=== PATIENT | male | born 2000 | race Two or more races ===

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

== ENCOUNTER 2021-12-11 15:53 | Emergency (ER) | payer MEDICAID, OTHER ==
[~2021-12-11] VITALS: Ht 180.3 cm; Wt 81.6 kg
[2021-12-11 20:47] VITALS: BP 128/64
== END 2021-12-11 19:53 | disposition home or self-care (01) ==
LOC: ER 15:55
DX: S96.912A Strain of unspecified muscle and tendon at ankle and foot level, left foot, initial encounter (principal); S16.1XXA Strain of muscle, fascia and tendon at neck level, initial encounter; S00.33XA Contusion of nose, initial encounter; S80.01XA Contusion of right knee, initial encounter; S09.90XA Unspecified injury of head, initial encounter; V43.52XA Car driver injured in collision with other type car in traffic accident, initial encounter; Y93.89 Activity, other specified; Y92.89 Other specified places as the place of occurrence of the external cause; Y99.8 Other external cause status
CPT/HCPCS: 70450; 70486; 72125; 73562; 73610